=== PATIENT | male | born 1970 ===

== ENCOUNTER 2016-06-25 08:43 | Emergency (ER) | payer OTHER ==
[2016-06-25 08:44] VITALS: BMI 48.8
--- NOTE | 2016-06-25 09:38 | C.PDOC ---
History Of Present Illness Pt c/o right lower back pain radiating down RLE. Time Seen by Provider: 06/25/16 09:10 Chief Complaint (Nursing): Back Pain History Per: Patient Onset/Duration Of Symptoms: Days (5), Waxing/Waning Current Symptoms Are (Timing): Still Present Quality Of Discomfort: Sharp, "Pain" Severity: Moderate Previous Symptoms: Back Pain Associated Symptoms: None Exacerbating Factor(s): Movement, Sitting Additional History Per: Prior Records Past Medical History Reviewed: Historical Data, Nursing Documentation, Vital Signs Vital Signs: Last Vital Signs Temp 97.6 F 06/25/16 09:00 Pulse 77 06/25/16 09:00 Resp 20 06/25/16 09:00 BP 151/100 H 06/25/16 09:00 Pulse Ox 96 06/25/16 09:39 - Medical History PMH: Back Problems, HTN, Hypercholesterolemia, Sleep Apnea Surgical History: Tonsillectomy Family History: States: Unknown Family Hx - Social History Hx Alcohol Use: No Hx Substance Use: No - Immunization History Hx Tetanus Toxoid Vaccination: No Hx Influenza Vaccination: No Hx Pneumococcal Vaccination: No Review Of Systems Except As Marked, All Systems Reviewed And Found Negative. Constitutional: Negative for: Fever, Weakness Cardiovascular: Negative for: Chest Pain Respiratory: Negative for: Shortness of Breath Gastrointestinal: Negative for: Vomiting, Abdominal Pain Genitourinary: Negative for: Dysuria, Incontinence, Hematuria Musculoskeletal: Negative for: Neck Pain Skin: Negative for: Rash Neurological: Negative for: Weakness, Seizures, Altered Mental Status Physical Exam - Physical Exam Appears: Non-toxic, No Acute Distress Skin: Normal Color, Warm, Dry, No Rash Head: Atraumatic, Normacephalic Eye(s): bilateral: PERRL, EOMI Neck: Normal ROM, Supple Cardiovascular: Rhythm Regular Respiratory: Normal Breath Sounds, No Accessory Muscle Use Gastrointestinal/Abdominal: Soft, No Tenderness Back: No CVA Tenderness, No Vertebral Tenderness Extremity: Normal ROM, No Calf Tenderness Extremity: Bilateral: Normal Color And Temperature Pulses: Right Dorsalis Pedis: Normal Neurological/Psych: Oriented x3, Normal Motor, Normal Sensation ED Course And Treatment O2 Sat by Pulse Oximetry: 96 Pulse Ox Interpretation: Normal Reassessment Condition: Improved Disposition Counseled Patient/Family Regarding: Diagnosis, Need For Followup, Rx Given - Disposition Referrals: Curt Schumacher MD [Staff Provider] - Disposition: HOME/ ROUTINE Disposition Time: 10:32 Condition: IMPROVED Additional Instructions: Follow up with your doctor for further evaluation and treatment, including MRI of the back. Return to the ER if you develop weakness, abdominal pain, trouble urinating, worsening of symptoms or if you have any other concerns. Prescriptions: Naproxen [Naprosyn] 1 tab PO BID PRN #20 tab PRN Reason: Pain traMADol/Acetaminophen [Ultracet 325 MG-37.5 MG] 1 tab PO Q4 PRN #30 tab PRN Reason: Pain, Severe (8-10) Instructions: Sciatica (ED) - Clinical Impression Clinical Impression: Right lumbar radiculopathy
[2016-06-25 10:40] VITALS: BP 139/88; PULSE 60; RESP 16; TEMP 97.9; O2SAT 97
== END 2016-06-25 10:41 | disposition home or self-care (01) ==
LOC: C.ER 08:43
DX: M54.16 Radiculopathy, lumbar region (principal)
CPT/HCPCS: 96372; 99283; J1885